=== PATIENT | male | born 1995 | race Caucasian/White ===

== ENCOUNTER 2021-12-18 16:57 | Emergency (ER) | payer MEDICAID ==
[~2021-12-18] VITALS: Ht 182.9 cm; Wt 67.3 kg
[2021-12-18 17:18] VITALS: BP 130/89
== END 2021-12-18 20:05 | disposition left against medical advice (07) ==
LOC: ER 16:58
DX: L02.91 Cutaneous abscess, unspecified (principal); Z53.21 Procedure and treatment not carried out due to patient leaving prior to being seen by health care provider